=== PATIENT | male | born 1935 | race Caucasian/White ===

== ENCOUNTER 2016-09-06 19:16 | Inpatient (IN) | payer MEDICARE, OTHER ==
--- NOTE | ~2016-09-06 | HP ---
History And Physical [place] [id number] [facility] [place]. [address] NAME: FRED HAY JR : 37 STATUS : ADM IN PAT#: [id number] AGE: 80 ADM/REG DATE : 09/06/16 MR#: [id number] REPORT SERV DATE: 09/07/16 DICTATED BY: WAGNER DE LEON DATE: 09/06/16 REPORT STATUS : Draft TRANSCRIBED BY: MODL DATE: 09/06/16 DATE OF ADMISSION: 09/06/2016 REFERRING PHYSICIAN: Dr. Castro in [facility] emergency room. REFERRING REASON: Wide-complex tachycardia and chest pain. HISTORY OF PRESENT ILLNESS: This is a 80-year-old white gentleman with complex past medical history, well-known to Dr. Mendoza and Dr. San, who developed sudden chest tightness, left arm pain, and neck pain around 5 p.m. tonight at rest. He presented to emergency room where he was found to have wide-complex tachycardia with right bundle-branch block and heart rate around 140. He received a bolus of amiodarone, which slowed down his heart rate to 130. His first troponin at 5:38 was negative troponin I. Magnesium and electrolytes were reported normal per outside ER physician. We have been asked for the transfer. The patient denied any recent chest pain, but has been chronically on Ranexa 500 mg twice a day. He has ischemic cardiomyopathy with EF 30%, remote history of CABG in 1992, and last PCI to venous graft to obtuse marginal by Dr. Matias in October 2015. Of note, last year, he had similar presentation to [facility], when he had been treated by Dr. Wells. He had wide-complex tachycardia, which was consistent with ventricular tachycardia. He was initially on amiodarone and then switched to sotalol. The patient, however, denied taking sotalol anytime recently, and it is unclear when it was discontinued. He has been on Jantoven at home, but the INR is unknown. He denies any lower extremity edema, fever, chills, palpitations, syncope, or lightheadedness. His systolic blood pressure reportedly has been chronically low. At home, his blood pressure is 90/50 up to 105/50, but not higher. He checked his heart rate at home and was up to 140 earlier today. He denies any recent AICD discharge. He denied any other symptoms. REVIEW OF SYSTEMS: The rest of review of systems is negative. PAST MEDICAL HISTORY: 1. Coronary artery disease, history of four-vessel CABG in 1992 with reported negative nuclear cardiac stress test one to two years ago per patient report. 2. Ischemic cardiomyopathy with EF 30% by echo in 2014. 3. Status post Bi-V AICD placement in 2013. The patient denied any recent discharges. This is [employer] device. 4. History of ventricular tachycardia in 2015. The patient was on sotalol. 5. History of several PCIs, two different vessels, most recent one drug-eluting stent into the venous graft to obtuse marginal by Dr. Matias in October 2015. 6. Chronic anticoagulation with Jantoven. 7. Reported history of atrial fibrillation in the past per Dr. Mendoza and report, there was remote history of LV apical thrombus. 8. Congestive heart failure. 9. Likely chronic angina with Ranexa use. 10.History of multiple surgeries in the left lower extremities. The patient ambulates History And Physical [address] [address] NAME: FRED HAY : 37 STATUS : ADM IN [facility]#: [id number] AGE: 80 ADM/REG DATE : 09/06/16 MR#: [id number] REPORT SERV DATE: 09/07/16 DICTATED BY: WAGNER DE LEON DATE: 09/06/16 REPORT STATUS : Draft TRANSCRIBED BY: ALONSO DATE: 09/06/16 with orthosis. ALLERGIES: LEVAQUIN. SOCIAL HISTORY: The patient is . He is retired. He denies smoking, drinking alcohol, or using street drugs. He is walking without any support. FAMILY HISTORY: Negative for sudden cardiac , premature coronary artery disease in the family. HOME MEDICATIONS: Jantoven 4 mg once a day, Ranexa 500 mg twice a day, Coreg 3.125 mg twice a day, Plavix 75 mg once a day, aspirin 81 mg once a day, and losartan 25 mg once a day and why he discontinued sotalol is unknown. PHYSICAL EXAMINATION: GENERAL: Elderly gentleman, in no acute distress, sitting on a bed without any distress. HEENT: Pupils reactive to light and accommodation. Moist mucosa membrane. VITAL SIGNS: Blood pressure 80/60, heart rate 130, wide-complex tachycardia. NECK: No JVD. Normal carotid upstroke. No carotid bruits. LUNGS: Decreased breath sounds observed, but no crackles. There is AICD in the left prepectoral muscle area. COR: Normal S1, S2. No S3 or S4. No significant rub or murmurs. ABDOMEN: Distended, nontender. EXTREMITIES: Lower extremity trace edema around the ankle with decreased pedal pulses bilaterally. SKIN: Warm with normal turgor. MS: No kyphosis. NEURO/PSY: The patient is oriented x3. He is saturating 98% on 2 L of oxygen. LABORATORY VALUES: Outside labs as above. Chest x-ray is unknown. INR is unknown. Electrocardiogram here revealed wide-complex tachycardia with heart rate 141 beats per minute with right bundle branch block, likely consistent with ventricular tachycardia. On monitor, he remains in a wide-complex tachycardia, which is mostly regular. ASSESSMENT AND PLAN: 1. Wide-complex tachycardia, likely ventricular tachycardia. 2. Relative hypotension. 3. Resting chest pain, cannot exclude acute coronary syndrome. 4. Ischemic cardiomyopathy. 5. AICD in place. 6. Coronary artery disease with remote history of CABG and last PCI with drug-eluting stent in October 2015. Under this picture, the patient has several medical problems. He is full code. We will closely monitor him in CCU. We will ask a [employer] rep to interrogate his device. Very likely his condition is ventricular tachycardia, which is below the threshold for AICD discharge. The patient, however, noted some pacing which can be antitachycardia pacing from History And Physical [address] [address] NAME: FRED HAY JR : 37 STATUS : ADM IN PAT#: [id number] AGE: 80 ADM/REG DATE : 09/06/16 MR#: [id number] REPORT SERV DATE: 09/07/16 DICTATED BY: WAGNER DE LEON DATE: 09/06/16 REPORT STATUS : Draft TRANSCRIBED BY: MODL DATE: 09/06/16 his device. We will recheck his electrolytes, troponin. Based on the INR, we may consider starting him on intravenous heparin. We will support his blood pressure if needed with dopamine recognizing the possibility of triggering faster heart rate. We will plan for echocardiogram in the morning. We are going to re-bolus him with another bolus of intravenous amiodarone. Start him on intravenous infusion. If his enzymes will increase, we will start him on intravenous heparin. Currently, he is oriented x3, in no obvious distress. His chest tightness is 1/10 at the present time. He is not a candidate for nitroglycerin due to his hypotension at the present time. We will do chest x-ray. All questions answered. We may ask for help with Dr. aSn tomorrow morning regarding his arrhythmia. OJL/MODL Wagner De Leon M.D. / [id number] CC: Wagner De Leon M.D.
--- NOTE | ~2016-09-06 | CN ---
Consultation Report [facility] [address] [place]. [address] NAME: HOWARD HAY JR : 37 STATUS : ADM IN PAT#: [id number] AGE: 80 ADM/REG DATE : 09/06/16 MR#: [id number] REPORT SERV DATE: 09/07/16 DICTATED BY: NAKUL SAN DATE: 09/07/16 REPORT STATUS : Draft TRANSCRIBED BY: MODL DATE: 09/07/16 ELECTROPHYSIOLOGY CONSULTATION DATE OF CONSULTATION: 09/07/2016 INDICATIONS: Sustained VT. HISTORY OF PRESENT ILLNESS: Howard Hay is a 80-year-old man with history of known ischemic heart disease, ischemic cardiomyopathy, remote bypass grafting, previous PCI, history of an LV thrombus. The patient presented yesterday with several hours of sustained ventricular tachycardia. On review of patient's device interrogation, he had VT at a rate of around 141 beats per minute, which was below his initial VT treatment zone. He felt weak, fatigued, lightheaded, and had some sensation of pressure in his chest. He presented initially at [facility] and was transferred to [facility] last evening. He was placed on amiodarone drip and has subsequently reverted back to sinus rhythm. The patient was on sotalol 40 mg twice daily at home. He did not have berta syncope. No recent orthopnea, PND, or sense of fluid retention. PAST MEDICAL HISTORY: Coronary artery disease, previous bypass grafting, previous PCI, ischemic cardiomyopathy, peripheral neuropathy, biventricular defibrillator. HOME MEDICATION: [facility] home medicine form reviewed, however sotalol 40 mg twice daily is not listed there, which is one of his home medications. ALLERGIES: LEVAQUIN, WHICH CAUSES NAUSEA AND VOMITING. SOCIAL HISTORY: Never smoker. FAMILY HISTORY: Noted for some relatives with cardiac disease. REVIEW OF SYSTEMS: As per the HPI. Otherwise, all other review of systems negative. PHYSICAL EXAMINATION: VITAL SIGNS: Blood pressure 104/58, pulse is 50, respiratory rate is 18. GENERAL: Appears stated age, no distress. EYES: Sclerae anicteric, no arcus senilis. MOUTH: Oral mucosa moist, lips acyanotic. NECK: Jugular venous pressure normal, no carotid bruits. LUNGS: Clear to auscultation bilaterally, normal inspiratory effort. CARDIAC: Regular rate and rhythm, no murmurs, gallops or rubs. ABDOMEN: Soft, nondistended, nontender. EXTREMITIES: No edema. Consultation Report [place] [id number] [place]. [address] NAME: HOWARD HAY JR : 37 STATUS : ADM IN PAT#: [id number] AGE: 80 ADM/REG DATE : 09/06/16 MR#: [id number] REPORT SERV DATE: 09/07/16 DICTATED BY: NAKUL SAN DATE: 09/07/16 REPORT STATUS : Draft TRANSCRIBED BY: MODL DATE: 09/07/16 SKIN: Warm and dry. NEURO/PSYCH: Alert and oriented, nonfocal, mood appropriate. In addition, he had a left infraclavicular ICD site, is well healed. No evidence of erosion or migration. ICD interrogation is reviewed, this demonstrates episodes of ventricular tachycardia, below VT treatment zone. Programming changes were made as follows, initial VT treatment zone lower to 136 with ATP only, then fast VT 150 to 214 with ATP followed by ICD shock, then VF at rates greater than 214 beats per minute with ICD shock, lower rate limit increased initially from 50 to 70, however the patient complained of some chest discomfort and was decreased back to 60 with some improvement. DATA: Potassium 4.1, creatinine 0.7. Hemoglobin 13.1, troponin 0.05, repeat is 0.76. INR 1.8. Electrocardiogram is atrial-sensed ventricular paced rhythm. IMPRESSION: 1. Sustained ventricular tachycardia below ICD treatment zone. 2. Ischemic cardiomyopathy. 3. Previous bypass grafting, recent PCI. 4. Existing biventricular Medtronic defibrillator. 5. Abnormal troponin. RECOMMENDATIONS: I had a long and extensive discussion with the patient regarding the present situation. I have recommended the following, increase lower rate limit from 50 to 60 beats per minute. Decrease initial VT treatment zone to 136 beats per minute with ATP only and then above 150 would be ATP followed by shocks as described above. Increase sotalol from 40 b.i.d. to 120 b.i.d. Anticipate proceeding with coronary arteriography and possible percutaneous intervention. We will discontinue Coreg so as to prevent hypotension related to increased dose of sotalol. I have advised the patient no driving in the range of six to twelve weeks. I do believe he needs outpatient followup ICD interrogation. Next, no additional ventricular arrhythmias, consider returning to driving as the patient did not have syncope. ECG during VT is a right bundle-branch block pattern, superior axis. EHSAN/ALONSO Nakul San M.D. Consultation Report [address] [address] NAME: HOWARD HAY : 39 STATUS : ADM IN PAT#: [id number] AGE: 80 ADM/REG DATE : 09/06/16 MR#: [id number] REPORT SERV DATE: 09/07/16 DICTATED BY: NAKUL SAN DATE: 09/07/16 REPORT STATUS : Draft TRANSCRIBED BY: ALONSO DATE: 09/07/16 / [id number] CC: Maile Bui M.D.
--- NOTE | ~2016-09-06 | DS ---
Discharge Summary [facility] [address] [place]. [address] NAME: FRED HAY JR : 39 STATUS : DIS IN PAT#: [id number] AGE: 80 ADM/REG DATE : 09/06/16 MR#: [id number] REPORT SERV DATE: 09/17/16 DICTATED BY: WAGNER DE LEON DATE: 09/16/16 REPORT STATUS : Draft TRANSCRIBED BY: ALONSO DATE: 09/16/16 Data Collection from hospitalization DISCHARGE DIAGNOSES: 1. Unstable angina. 2. Coronary artery disease, status post drug-eluting stent - saphenous vein graft to the posterior descending artery. 3. Ischemic cardiomyopathy. 4. Atrial fibrillation. 5. Peripheral neuropathy. 6. Congestive heart failure. CONSULTATIONS: Nakul San M.D. PROCEDURES PERFORMED: Cardiac catheterization and percutaneous coronary intervention on 09/08/2016. MEDICATIONS: Zyloprim 300 mg with lunch, aspirin 81 mg daily, Astelin two sprays nasally as needed, Balanced-B tablet one tablet with lunch, Tessalon 100 mg every four hours as needed, vitamin D3 2000 units daily, Plavix 75 mg daily, CoQ10 200 mg every morning, Zetia 10 mg daily, Flonase nasal spray two sprays nasally every morning, Lasix 20 mg daily on Mondays and Fridays, [place] 5/325 one tablet three times a day as needed, Atarax 25 mg as needed, Linzess 145 mcg daily as needed, Cozaar 25 mg before supper, nitroglycerin 0.4 mg sublingually as needed, Patanol one drop twice a day as needed, Zantac 300 mg at bedtime, Ranexa 500 mg twice a day, vitamin B2 100 mg daily, Crestor 20 mg at bedtime, Betapace 120 mg every 12 hours, Aldactone 12.5 mg daily as instructed, Carafate 1 g as needed, Flomax 0.4 mg daily, and Jantoven 4 mg after supper. CONDITION AT DISCHARGE: Stable. DISPOSITION: The patient was discharged home on a low-sodium, low-cholesterol, cardiac diet with activities as instructed. He would follow up with Dr. Dylan Esposito on 09/23/[address] Juan C Mendoza on 10/10/2016. He would follow up at [facility] on 09/26/2016. He would follow up for PT/INR at [facility] on 09/12/2016. HOSPITAL COURSE: This is a 80-year-old man who has a complex past medical history. He developed the sudden onset of chest tightness, left arm pain, and neck pain around 5:00 p.m. on the evening of this admission at rest. He presented to the emergency room where he was found to have wide-complex tachycardia with right bundle-branch block and a heart rate around 140. He received a bolus of amiodarone, which slowed down his heart rate to 130. His first troponin was negative. Magnesium and electrolytes were reported as normal by an outside emergency room physician. We were asked for the transfer. The patient does have ischemic cardiomyopathy with ejection fraction of 30%. There was a remote history of coronary artery bypass grafting in 1992. He had a percutaneous coronary intervention to venous graft to obtuse marginal in October of 2015. Last year, he had a similar presentation to [facility] and had been treated by Dr. Wells. He had wide-complex tachycardia, which was consistent with ventricular tachycardia. He was initially on amiodarone and then switched to sotalol. He denied taking sotalol anytime recently and it was unclear when this Discharge Summary [address] [address] NAME: FRED HAY MIGUEL ANGEL ESQUEDA : 39 STATUS : DIS IN PAT#: [id number] AGE: 80 ADM/REG DATE : 09/06/16 MR#: [id number] REPORT SERV DATE: 09/17/16 DICTATED BY: WAGNER DE LEON DATE: 09/16/16 REPORT STATUS : Draft TRANSCRIBED BY: ALONSO DATE: 09/16/16 was discontinued. He had been on Jantoven at home, but the INR level was unknown. He denied any recent AICD firings. It was felt that the patient would need to undergo cardiac catheterization and possible percutaneous coronary intervention. The following day, he was seen by Dr. Nakul San regarding sustained ventricular tachycardia. The patient had sustained ventricular tachycardia below ICD treatment zone. He also had ischemic cardiomyopathy. The patient has an existing biventricular Medtronic defibrillator. A long discussion was held with the patient regarding his present situation. It was recommended that we increased the lower rate from 50 to 60 beats per minute. We would decrease initial ventricular tachycardia treatment zone to 136 beats per minute with ATP only and then above 150 would be ATP followed by shocks. We would increase sotalol. It was anticipated that he would need to proceed with coronary arteriography with possible percutaneous intervention. Coreg was going to be discontinued so as to prevent hypotension related to increased dose of sotalol. The patient was instructed that he should not drive in the range of 6 to 12 weeks. It was felt that he would need outpatient followup ICD interrogation. On 09/08/2016, he was taken to the cardiac slab tripper where he underwent the above-mentioned procedure. He tolerated this well, and there were no complications. The episode of prolonged ventricular tachycardia had resolved. Discharge planning was performed. He had no further chest pain. On 09/09/2016, he had no complaints of shortness of breath or chest pain. INR level was 1.4. Plavix and Coumadin were continued. He has a left ventricular ejection fraction of 35%. We encouraged him to ambulate. Discharge instructions were given. Due to his improved and stable condition, he was discharged home with the above-stated instructions. Information collected by: Leatha Ceballos I submit the above information as my discharge summary. TG/MODL Wagner De Leon M.D. / [id number] CC: Kacie Coates M.D. Gregory Keith Bruce, M.D.
[~2016-09-06 19:16] MED LIST: ALLEGRA180 PO; AMOXIL500C PO; ASA5GR PO; ASAB PO; ASTELIN NAS; AT25 PO; ATEN25 PO; B12100T PO; BALANCED B PO; BETAPACE80 PO; CIP2 PO; CIP5 PO; CITRUCEL500 MG PO; CLARIT10 PO; CO Q-10200 MG PO; COREG3 PO; COUMADIN4 MG PO; COZ25 PO; CRESTOR10 PO; CRESTOR5 MG PO; ENDOCET1 TAB PO; FL250 PO; FLOMAX4 PO; FLONASE NAS; HALF81 PO; JANTOVEN1 MG; JANTOVEN4 MG PO; L20 PO; LINZESS 145 M145 MCG PO; MIRALAXPKT PO; MONODOX100 MG PO; NIASPAN500 PO; NITROSPRAY SL; NITROSTAT0.4 MG SL; NORCO1 TA1 PO; OXYCOD; PATANOL OPH; PLAVIX PO; PREV15 PO; RAN500 PO; RANITIDINE300 MG PO; SPIRO25 PO; SUCR PO; TESS PO; VIT B COMPLEX; VITAMIN B PO; VITAMIN D31000 UNIT PO; VITD PO; VOLT75 PO; Z300 PO; ZANTAC 150 PO; ZANTAC300 MG PO; ZETIA PO; [UNRECOGNIZED DRUG - OTHER] PO; [UNRECOGNIZED DRUG - OTHER] PO; [UNRECOGNIZED DRUG - OTHER] TD
[2016-09-06 20:06] LABS: BASOPHILS 0.2 %; BASOPHILS ABSOLUTE 0.02 10/3/uL (0.0-0.16); EOSINOPHILS 5.5 %; EOSINOPHILS ABSOLUTE 0.44 10/3/uL (0.0-0.53); HEMATOCRIT 39.5 % (40.0-51.0); HEMOGLOBIN 13.9 g/dL (13.6-17.8); IMMATURE GRANULOCYTES 0.5 %; IMMATURE GRANULOCYTES ABSOLUTE 0.04 10/3/uL (0.0-0.11); LYMPHOCYTES 16.3 %; LYMPHOCYTES ABSOLUTE 1.31 10/3/uL (0.67-4.30); MANUAL DIFF NO %; MEAN CORPUS HGB CONC 35.2 g/dL (32.0-36.0); MEAN CORPUSCULAR HEMOGLOB 33.3 pg (26.0-34.0); MEAN CORPUSCULAR VOLUME 94.7 fL (80-100); MEAN PLATELET VOLUME 9.7 fL (9.2-13.0); MONOCYTES 9.8 %; MONOCYTES ABSOLUTE 0.79 10/3/uL (0.21-1.20); NEUTROPHILS 67.7 %; NEUTROPHILS ABSOLUTE 5.44 10/3/uL (2.02-8.40); PLATELET COUNT 163 10/3/uL (150-400); RBC DISTRIBUTION WIDTH 12.8 % (12.0-16.0); RED CELL COUNT 4.17 10/6/uL (4.7-6.1)
[2016-09-06 20:12] LABS: INTERNATIONAL NORMAL RATI 1.8 UNITS (-); PARTIAL THROMBO TIME 33.5 SEC (22.5-37.2)
[2016-09-06 20:14] LABS: PROTIME (NOT ORD) 20.8 SEC (12.0-14.5)
[2016-09-06 20:24] LABS: A/G RATIO 1.2 (0.7-1.9); ALBUMIN 3.6 G/DL (3.5-5.0); ALKALINE PHOSPHATASE 47 U/L (45-117); CHLORIDE, SERUM 112 MMOL/L (96-112); CREATININE 0.84 MG/DL (0.70-1.30); GFR AFRICAN AMERICAN 97 ML/MIN (>=60); GFR NON AFRICAN AMERICAN 84 ML/MIN (>=60); GLOBULIN 2.9 G/DL (2.5-4.1); GLUCOSE, SERUM 120 MG/DL (60-99); PHOSPHORUS, SERUM 2.5 MG/DL (2.5-4.5); POTASSIUM, SERUM 4.5 MMOL/L (3.5-5.3); SGOT(AST) 16 U/L (5-40); SGPT(ALT) 20 U/L (5-65); TOTAL BILIRUBIN 0.6 MG/DL (0-1.2); TOTAL PROTEIN 6.5 G/DL (6.0-8.5)
[2016-09-06 20:26] LABS: BUN (BLOOD UREA NITROGEN) 12 MG/DL (6-23); CALCIUM, SERUM 7.8 MG/DL (8.5-10.4); CK-MB 2.9 NG/ML; CO2 (CARBON DIOXIDE) 24 MMOL/L (24-34); CPK 101 U/L (0-200); SODIUM, SERUM 144 MMOL/L (135-148)
[2016-09-06 20:28] LABS: TROPONIN I 0.05 NG/ML (<0.05)
[2016-09-06] MEDS ORDERED: COREG3 PO (21:55)
[2016-09-06] MEDS ORDERED: SPIRO25 PO (21:56)
[2016-09-06] MEDS ORDERED: PLAVIX PO ×2 (21:56→22:06)
[2016-09-06] MEDS ORDERED: ASAB PO (21:57)
[2016-09-06] MEDS ORDERED: JANTOVEN4 MG PO (21:58)
[2016-09-06] MEDS ORDERED: RAN500 PO (21:59)
[2016-09-06] MEDS ORDERED: VITAMIN D31000 UNIT PO (22:00)
[2016-09-06] MEDS ORDERED: VITAMIN B-2100 MG PO (22:01)
[2016-09-06] MEDS ORDERED: COZ25 PO (22:02)
[2016-09-06] MEDS ORDERED: FLOMAX4 PO (22:02)
[2016-09-06] MEDS ORDERED: ZETIA PO (22:04)
[2016-09-06] MEDS ORDERED: CRESTOR20 MG PO (22:05)
[2016-09-07 02:59] LABS: BASOPHILS 0.2 %; BASOPHILS ABSOLUTE 0.02 10/3/uL (0.0-0.16); EOSINOPHILS 4.9 %; EOSINOPHILS ABSOLUTE 0.41 10/3/uL (0.0-0.53); HEMOGLOBIN 13.1 g/dL (13.6-17.8); IMMATURE GRANULOCYTES 0.1 %; IMMATURE GRANULOCYTES ABSOLUTE 0.01 10/3/uL (0.0-0.11); LYMPHOCYTES 22.5 %; LYMPHOCYTES ABSOLUTE 1.89 10/3/uL (0.67-4.30); MEAN CORPUS HGB CONC 35.4 g/dL (32.0-36.0); MEAN CORPUSCULAR HEMOGLOB 33.3 pg (26.0-34.0); MEAN CORPUSCULAR VOLUME 94.1 fL (80-100); MEAN PLATELET VOLUME 9.6 fL (9.2-13.0); MONOCYTES 8.8 %; MONOCYTES ABSOLUTE 0.74 10/3/uL (0.21-1.20); NEUTROPHILS 63.5 %; NEUTROPHILS ABSOLUTE 5.32 10/3/uL (2.02-8.40); PLATELET COUNT 150 10/3/uL (150-400); RBC DISTRIBUTION WIDTH 12.7 % (12.0-16.0); RED CELL COUNT 3.93 10/6/uL (4.7-6.1); WHITE BLOOD CELLS 8.4 10/3/uL (4.5-10.5)
[2016-09-07 03:00] LABS: MANUAL DIFF NO %
[2016-09-07 03:11] LABS: PARTIAL THROMBO TIME 127.2 SEC (22.5-37.2)
[2016-09-07 03:14] LABS: BUN (BLOOD UREA NITROGEN) 11 MG/DL (6-23); CALCIUM, SERUM 7.7 MG/DL (8.5-10.4); CHLORIDE, SERUM 111 MMOL/L (96-112); CO2 (CARBON DIOXIDE) 25 MMOL/L (24-34); CREATININE 0.77 MG/DL (0.70-1.30); GFR AFRICAN AMERICAN 101 ML/MIN (>=60); GFR NON AFRICAN AMERICAN 87 ML/MIN (>=60); GLUCOSE, SERUM 110 MG/DL (60-99); POTASSIUM, SERUM 4.1 MMOL/L (3.5-5.3); SODIUM, SERUM 144 MMOL/L (135-148)
[2016-09-07 03:16] LABS: TROPONIN I 3.76 NG/ML (<0.05)
[2016-09-07 08:08] LABS: INTERNATIONAL NORMAL RATI 1.9 UNITS (-)
[2016-09-08 07:05] LABS: BASOPHILS 0.2 %; BASOPHILS ABSOLUTE 0.02 10/3/uL (0.0-0.16); EOSINOPHILS 3.9 %; EOSINOPHILS ABSOLUTE 0.34 10/3/uL (0.0-0.53); HEMATOCRIT 38.2 % (40.0-51.0); HEMOGLOBIN 13.2 g/dL (13.6-17.8); IMMATURE GRANULOCYTES 0.2 %; IMMATURE GRANULOCYTES ABSOLUTE 0.02 10/3/uL (0.0-0.11); LYMPHOCYTES 13.4 %; LYMPHOCYTES ABSOLUTE 1.17 10/3/uL (0.67-4.30); MEAN CORPUS HGB CONC 34.6 g/dL (32.0-36.0); MEAN CORPUSCULAR HEMOGLOB 32.7 pg (26.0-34.0); MEAN CORPUSCULAR VOLUME 94.6 fL (80-100); MEAN PLATELET VOLUME 9.7 fL (9.2-13.0); MONOCYTES 10.2 %; MONOCYTES ABSOLUTE 0.89 10/3/uL (0.21-1.20); NEUTROPHILS 72.1 %; NEUTROPHILS ABSOLUTE 6.27 10/3/uL (2.02-8.40); PLATELET COUNT 157 10/3/uL (150-400); RBC DISTRIBUTION WIDTH 13.2 % (12.0-16.0); RED CELL COUNT 4.04 10/6/uL (4.7-6.1); WHITE BLOOD CELLS 8.7 10/3/uL (4.5-10.5)
[2016-09-08 07:06] LABS: MANUAL DIFF NO %
[2016-09-08 07:13] LABS: INTERNATIONAL NORMAL RATI 1.6 UNITS (-); PROTIME (NOT ORD) 18.7 SEC (12.0-14.5)
[2016-09-08 07:14] LABS: PARTIAL THROMBO TIME 92.2 SEC (22.5-37.2)
[2016-09-08 07:22] LABS: BUN (BLOOD UREA NITROGEN) 8 MG/DL (6-23); CALCIUM, SERUM 8.1 MG/DL (8.5-10.4); CHLORIDE, SERUM 105 MMOL/L (96-112); CHOL/HDL RATIO(NOT ORDER) 3.1 (0-5); CHOLESTEROL 109 MG/DL (< 200); CO2 (CARBON DIOXIDE) 25 MMOL/L (24-34); CREATININE 0.78 MG/DL (0.70-1.30); GFR AFRICAN AMERICAN 100 ML/MIN (>=60); GFR NON AFRICAN AMERICAN 86 ML/MIN (>=60); GLUCOSE, SERUM 108 MG/DL (60-99); HDL CHOLESTEROL 35 MG/DL (> 39); LDL CHOLESTEROL 48 MG/DL (< 130); NON-HDL CHOLESTEROL 74 MG/DL (< 160); POTASSIUM, SERUM 3.7 MMOL/L (3.5-5.3); SODIUM, SERUM 140 MMOL/L (135-148); TRIGLYCERIDE 133 MG/DL (< 150)
[2016-09-09 05:48] LABS: BASOPHILS 0.3 %; BASOPHILS ABSOLUTE 0.02 10/3/uL (0.0-0.16); EOSINOPHILS 4.7 %; EOSINOPHILS ABSOLUTE 0.36 10/3/uL (0.0-0.53); HEMATOCRIT 37.9 % (40.0-51.0); HEMOGLOBIN 13.2 g/dL (13.6-17.8); IMMATURE GRANULOCYTES 0.4 %; IMMATURE GRANULOCYTES ABSOLUTE 0.03 10/3/uL (0.0-0.11); LYMPHOCYTES 14.5 %; MEAN CORPUS HGB CONC 34.8 g/dL (32.0-36.0); MEAN CORPUSCULAR HEMOGLOB 32.8 pg (26.0-34.0); MEAN CORPUSCULAR VOLUME 94.3 fL (80-100); MEAN PLATELET VOLUME 9.6 fL (9.2-13.0); MONOCYTES 11.6 %; MONOCYTES ABSOLUTE 0.88 10/3/uL (0.21-1.20); NEUTROPHILS 68.5 %; PLATELET COUNT 147 10/3/uL (150-400); RBC DISTRIBUTION WIDTH 12.8 % (12.0-16.0); RED CELL COUNT 4.02 10/6/uL (4.7-6.1); WHITE BLOOD CELLS 7.6 10/3/uL (4.5-10.5)
[2016-09-09 05:50] LABS: INTERNATIONAL NORMAL RATI 1.4 UNITS (-); PROTIME (NOT ORD) 16.8 SEC (12.0-14.5)
[2016-09-09 05:56] LABS: BUN (BLOOD UREA NITROGEN) 11 MG/DL (6-23); CALCIUM, SERUM 7.8 MG/DL (8.5-10.4); CHLORIDE, SERUM 107 MMOL/L (96-112); CO2 (CARBON DIOXIDE) 29 MMOL/L (24-34); CREATININE 0.92 MG/DL (0.70-1.30); GFR AFRICAN AMERICAN 92 ML/MIN (>=60); GFR NON AFRICAN AMERICAN 79 ML/MIN (>=60); GLUCOSE, SERUM 88 MG/DL (60-99); POTASSIUM, SERUM 3.9 MMOL/L (3.5-5.3); SODIUM, SERUM 142 MMOL/L (135-148)
[2016-09-09 06:00] LABS: MANUAL DIFF NO %
[2016-09-09] MEDS ORDERED: BETAP120 PO (09:06)
== END 2016-09-09 12:45 | disposition home or self-care (01) | DRG 247 ==
LOC: CCU 19:16 → 6NO 09-07 16:58 → SSU1 09-08 13:50
PROVIDERS: Internal Medicine Cardiovascular Disease
PROC: 027034Z Dilation of Coronary Artery, One Artery with Drug-eluting Intraluminal Device, Percutaneous Approach (ICD-10-PCS; principal; 2016-09-08)
PROC: 4A023N7 Measurement of Cardiac Sampling and Pressure, Left Heart, Percutaneous Approach (ICD-10-PCS; 2016-09-08)
PROC: B2151ZZ Fluoroscopy of Left Heart using Low Osmolar Contrast (ICD-10-PCS; 2016-09-08)
PROC: B2111ZZ Fluoroscopy of Multiple Coronary Arteries using Low Osmolar Contrast (ICD-10-PCS; 2016-09-08)
PROC: B2131ZZ Fluoroscopy of Multiple Coronary Artery Bypass Grafts using Low Osmolar Contrast (ICD-10-PCS; 2016-09-08)
DX: I21.4 Non-ST elevation (NSTEMI) myocardial infarction (principal); I47.2 Ventricular tachycardia; I95.9 Hypotension, unspecified; I50.9 Heart failure, unspecified; I45.10 Unspecified right bundle-branch block; I48.0 Paroxysmal atrial fibrillation; I25.5 Ischemic cardiomyopathy; I25.119 Atherosclerotic heart disease of native coronary artery with unspecified angina pectoris; E78.00 Pure hypercholesterolemia, unspecified; E87.6 Hypokalemia; I25.2 Old myocardial infarction; Z88.1 Allergy status to other antibiotic agents; Z95.1 Presence of aortocoronary bypass graft; Z95.5 Presence of coronary angioplasty implant and graft; Z79.01 Long term (current) use of anticoagulants; Z82.49 Family history of ischemic heart disease and other diseases of the circulatory system; Z95.810 Presence of automatic (implantable) cardiac defibrillator; Z98.890 Other specified postprocedural states
CPT/HCPCS: 71010; 80048; 80053; 80061; 82550; 82553; 84100; 84484; 85025; 85610; 85730; 87641; 93005; 93459; 99152; 99153; A9270-GY; C1713; C1725; C1760; C1769; C1874; C1884; C1887; C8929; C9604; J0282; J0583; J2250; J3010; Q9957; Q9967